=== PATIENT | male | born 1975 | race Caucasian/White ===

== ENCOUNTER 2017-11-18 16:20 | Emergency (ER) | payer MEDICARE | END 2017-11-18 17:40 | disposition home or self-care (01) | LOC: ER 16:20 | DX: S49.92XA Unspecified injury of left shoulder and upper arm, initial encounter (principal); G89.29 Other chronic pain; Z88.8 Allergy status to other drugs, medicaments and biological substances; X50.9XXA Other and unspecified overexertion or strenuous movements or postures, initial encounter; Y93.89 Activity, other specified; Y99.8 Other external cause status; Y92.89 Other specified places as the place of occurrence of the external cause | CPT/HCPCS: 73030; 99284 ==

== ENCOUNTER 2020-09-28 11:12 | Emergency (ER) | payer MEDICARE ==
[~2020-09-28] VITALS: Ht 190.5 cm; Wt 129.4 kg
[2020-09-28] MEDS ORDERED: LIDOCAINE (700MG/PATCH) PATCH. ONE (11:43)
[2020-09-28] MEDS ORDERED: LIDOCAINE (700MG/PATCH) PATCH. TD ONE (12:00)
--- NOTE | 2020-09-28 12:00 | RAD ---
Study: XR SHOULDER_LEFT 2+ VIEWS Indication: Left shoulder pain. History of dislocations. Comparison: 11/18/2017 Findings: Glenohumeral and acromioclavicular joint alignment is within normal limits. No acute fracture is iden tified. Maintained acromiohumeral interval. There may be a small chronic Hill-Sachs impaction deformi ty. No advanced arthrosis. Partially imaged median sternotomy wires. Incomplete assessment of the cardiomediastinal silhouette w hich is only partially imaged. There may be some ectasia of the descending aorta. Impression: 1. No acute fracture or malalignment at the left shoulder girdle. 2. The descending aorta appears to be somewhat ectatic but characterization is limited due to partial imaging of this region and patient obliquity. Status post median sternotomy. Electronically signed by: KARLENE JAMES MD (09/28/2020 11:58 AM) [id number]
--- NOTE | 2020-09-28 12:22 | PHYS DOC ---
Past Medical History Past Medical History: Other Additional Past Medical Histor: MARFAN'S,CHRONIC PAIN,HEART,AORTIC TEAR Past Surgical History: Tonsillectomy, Other Additional Past Surgical Histo: AORTIC VALVE REPLACEMENT,HIP X4 Smoking Status: Never Smoker Alcohol Use: None Drug Use: None General Adult EDM: Chief Complaint: SHOULDER INJURY HPI: HPI: 44-year-old male past medical history of ruptured AAA (reports no repair), Marfan's and recurrent left shoulder dislocations, presents to the ED with complaints of left shoulder pain after patient was reaching forward to grab something. States he has been seen by orthopedic surgery and they refused to perform surgery until patient's known "ruptured abdominal aortic aneurysm is surgically repaired." Pt states he normally follows at [facility]. Denies any blunt injury to the shoulder. Denies any associated chest, abdominal, back pain. Reports left shoulder pain radiates from his shoulder down to his hand and is requesting pain medication stating "I'm getting sweaty cause I'm in pain." I formed patient he would receive a lidocaine patch and he stated "That won't work, I need something stronger." Review of Systems: Review of Systems: Constitutional: Denies fever or chills. [] Eyes: Denies change in visual acuity. [] HENT: Denies nasal congestion or sore throat. [] Respiratory: Denies cough or shortness of breath. [] Cardiovascular: Denies chest pain or edema or syncope GI: Denies abdominal pain, nausea, vomiting, bloody stools or diarrhea. [] : Denies dysuria or hematuria Musculoskeletal: Denies back pain or CVA tenderness Integument: Denies rash or blistering lesions Neurologic: Denies headache, midline neck pain, focal weakness or sensory changes. [] Endocrine: Denies polyuria or polydipsia. [] Lymphatic: Denies swollen glands. [] Psychiatric: Denies depression or anxiety. [] Heart Score: C/O Chest Pain: No Risk Factors: Risk Factors: DM, Current or recent (<one month) smoker, HTN, HLP, family history of CAD, obesity. Risk Scores: Score 0 - 3: 2.5% MACE over next 6 weeks - Discharge Home Score 4 - 6: 20.3% MACE over next 6 weeks - Admit for Clinical Observation Score 7 - 10: 72.7% MACE over next 6 weeks - Early Invasive Strategies Current Medications: Current Medications Medications (Trade) Dose Ordered Sig/Zena Start Time Stop Time Status Last Admin Dose Admin Lidocaine (Lidoderm) 1 patch STK-MED ONCE 09/28/20 11:43 09/28/20 11:43 DC Allergies: Allergies: Allergies Uncoded Allergies Type Severity Reaction Last Updated Verified FLU/PNEUMONIA SHOT Allergy Unknown "WEIRD REACTION" 11/18/17 Physical Exam: PE: Constitutional: Well developed, well nourished, no acute distress, non-toxic appearance. HENT: Normocephalic, atraumatic, Eyes: EOMI, conjunctiva normal, no discharge. Neck: Normal range of motion, supple, no midline pain Cardiovascular: S1/2 present, regular rhythm, no murmur Lungs & Thorax: Speaking in full sentences, bilateral equal chest rise, no tachypnea or increased work of breathing Abdomen: soft, no tenderness, Skin: Warm, dry, no erythema, no rash, no diaphoresis, skin does not feel clammy or overly warm to the touch Back: No tenderness, no CVA tenderness. [] Extremities: no cyanosis, no lower extremity edema, normal appearing shoulder joints, no effusion, normal left shoulder/elbow/wrist rom Neurologic: Alert and oriented X 3, normal motor function, normal sensory function, no focal deficits noted. [] Psychologic: Affect normal, judgement normal, mood normal. [] Current Patient Data: Vital Signs: Vital Signs Date Time Temp Pulse Resp B/P (MAP) Pulse Ox O2 Delivery O2 Flow Rate FiO2 09/28/20 11:18 97.8 60 26 139/60 (86) 100 97.8 EKG: EKG: Sinus rhythm at 55 bpm, no axis deviation, QTC 458, questionable T wave inversion in aVL and V2, no accelerations or ST depressions, no active chest pain Radiology/Procedures: Radiology/Procedures: []IMAGING REPORT Signed PATIENT: YENNIFER MARTE ACCOUNT: [id number] : 1975 LOCATION: ER AGE: 44 SEX: M EXAM STATUS: PRE ER ORD. PHYSICIAN: MARIA D AMES DO REASON: left shoulder pain, h/o dislocations PROCEDURE: SHOULDER 2+V LEFT Study: XR SHOULDER_LEFT 2+ VIEWS Indication: Left shoulder pain. History of dislocations. Comparison: 11/18/2017 Findings: Glenohumeral and acromioclavicular joint alignment is within normal limits. No acute fracture is identified. Maintained acromiohumeral interval. There may be a small chronic Hill-Sachs impaction deformity. No advanced arthrosis. Partially imaged median sternotomy wires. Incomplete assessment of the cardiomediastinal silhouette which is only partially imaged. There may be some ectasia of the descending aorta. Impression: 1. No acute fracture or malalignment at the left shoulder girdle. 2. The descending aorta appears to be somewhat ectatic but characterization is limited due to partial imaging of this region and patient obliquity. Status post median sternotomy. Electronically signed by: KARLENE JAMES MD (09/28/2020 11:58 AM) [id number] DICTATED and SIGNED BY: KARLENE JAMES MD DATE: 09/28/20 [id number] 0 Course & Med Decision Making: Course & Med Decision Making Pertinent Labs and Imaging studies reviewed. (See chart for details) Concern for atraumatic left shoulder pain in the setting of radiculopathy and subjective fever/chills (no active diaphoresis) in a male who appears in no distress, calm with equal radial and brachial pulses, no heart murmur. Given pts' risk factors, symptoms and left shoulder x-rays reviewed myself, plan is to rule out worsening erythema dissection, troponin or electrolyte abnormalities, treat pain and reevaluate patient. Patient continues to ask about analgesia in ED-I informed him I wanted to start an IV and draw labs and do a CT to look at pts' aorta, that further analgesia would be ordered. I was informed by RN and charge that pt decided to leave our facility against medical advice. I have assessed patient's ability to make informed decision and feel the patient has the capacity to comprehend information regarding the current medical condition and appreciates the impact of the disease or condition and the consequences of various options for treatment, including foregoing treatment. The patient possesses the ability to evaluate all treatment options, comparing the risks and benefits of each option, communicate his or her choice in a consistent manner over time, and is able to make rational choices. I explained to the patient further testing, treatment, and evaluation I would like to perform in the emergency department visit as well as any possible alternatives that can be accomplished in a timely manner. I have outlined the possible risks of foregoing any or all of these interventions and the patient understands and acknowledges that the decision to leave may result in undesirable consequences such as , permanent disability, and/or loss of current lifestyle. Patient refused to wait for any discharge information and follow-up instructions. Patient would not stay in ED to wait to speak to me. RN had pt sign AMA form and informed patient he is welcome to return anytime to continue care at our facility. Dragon Disclaimer: Dragon Disclaimer: This electronic medical record was generated, in whole or in part, using a voice recognition dictation system. Departure Departure Impression: Primary Impression: Left anterior shoulder pain Additional Impressions: Left against medical advice Radiculopathy affecting upper extremity Disposition: LEFT AGAINST MEDICAL ADVICE Condition: STABLE Referrals: RICKY REAGAN MD (PCP) in 24 hours for reevaluation Patient Instructions: Discharge Against Medical Advice, Shoulder Pain Additional Instructions: EMERGENCY DEPARTMENT GENERAL DISCHARGE INSTRUCTIONS Thank you for coming to [facility] Emergency Department (ED) today and trusting us with you care. We trust that you had a positive experience in our Emergency Department. If you wish to speak to the department management, you may call the Director at [phone]. YOUR FOLLOW UP INSTRUCTIONS ARE FOLLOWS: 1. Do you have a private Doctor? If you do not have a private doctor, please ask for a resource list of physicians or clinics that may be able to assist you with follow up care. 2. The Emergency Physicain has interpreted your x-rays. The X-Ray specialist will also review them. If there is a change in the findings, you will be notified in 48 hours when at all possible. 3. A lab test or culture has been done, your results will be reviewed and you will be notified if you need a change in treatment. ADDITIONAL INSTRUCTIONS AND INFORMATION: 1. Your care today has been supervised by a physician who is specially trained in emergency care. Many problems require more than one evaluation for a complete diagnosis and treatment. We recommend that you schedule your follow up appointment as recommended to ensure complete treatment of you illness or injury. If you are unable to obtain follow up care and continue to have a problem, or if your condition worsens, we recommend that you return to the ED. 2. We are not able to safely determine your condition over the phone nor are we able to give sound medical advice over the phone. For these safety reasons, if you call for medical advice we will ask you to come to the ED for further evaluation. 3. If you have any questions regarding these discharge instructions please call the ED at [phone]. SAFETY INFORMATION: In the interest of safety, wellness, and injury prevention; we encourage you to wear your sealbelt, if you smoke; quite smoking, and we encourage family to use a protective helmet for bicycling and other sporting events that present an increased risk for head injury. IF YOUR SYMPTOMS WORSEN OR NEW SYMPTOMS DEVELOP, OR YOU HAVE CONCERNS ABOUT YOUR CONDITION; OR IF YOUR CONDITION WORSENS WHILE YOU ARE WAITING FOR YOUR FOLLOW UP APPOINTMENT; EITHER CONTACT YOUR PRIMARY CARE DOCTOR, THE PHYSICIAN WHOSE NAME AND NUMBER YOU WERE GIVEN, OR RETURN TO THE ED IMMEDIATELY. MARIA D AMES DO September 28, 2020 12:22
[2020-09-28 12:54] LABS: BASO # 0.1 x10^3/uL (0.0-0.2); BASO % 1 % (0-3); EOS # 0.2 x10^3/uL (0.0-0.7); EOS % 3 % (0-3); HEMOGLOBIN 12.3 g/dL (13.0-17.5); LYMPH # 1.1 x10^3/uL (1.0-4.8); LYMPH % 14 % (24-48); MEAN CORPUSCULAR HEMOGLOBIN 30 pg (25-35); MEAN CORPUSCULAR HGB CONC 34 g/dL (31-37); MEAN CORPUSCULAR VOLUME 87 fL (79-100); MONO # 0.4 x10^3/uL (0.0-1.1); MONO % 5 % (0-9); NEUT % 77 % (31-73); PLATELET COUNT 428 x10^3/uL (140-400); RED BLOOD COUNT 4.11 x10^6/uL (4.30-5.70); RED CELL DISTRIBUTION WIDTH 14.7 % (11.5-14.5); WHITE BLOOD COUNT 7.8 x10^3/uL (4.0-11.0)
[2020-09-28 12:56] VITALS: BP 138/74
[2020-09-28 13:04] LABS: CALCIUM 9.1 mg/dL (8.5-10.1); GFR 80.8; POTASSIUM 4.1 mmol/L (3.5-5.1)
[2020-09-28] MEDS ORDERED: IOHEXOL 350 MG/ML 100 ML VIAL. IV ONE (13:15)
[2020-09-28] MEDS ORDERED: CONTRAST GIVEN. MC PRN (13:30)
--- NOTE | 2020-09-28 19:10 | EKG ---
[facility] [address] [place] [address] Test Date: 2020-09-28 Test Time: 12:34:30 Pat Name: YENNIFER MARTE Department: Room: Gender: M [employer]: : 1975 Requested By: MARIA D AMES Order Number: [id number] Reading MD: Measurements Intervals [place] Rate: 55 P: 4 AL: 198 QRS: 39 QRSD: 92 T: 71 QT: 476 QTc: 458 Interpretive Statements SINUS RHYTHM CONSIDER RIGHT VENTRICULAR HYPERTROPHY POSSIBLY ABNORMAL ECG RI6.02 No previous ECG available for comparison
== END 2020-09-28 13:09 | disposition left against medical advice (07) ==
LOC: ER 11:12
DX: M25.512 Pain in left shoulder (principal); M54.10 Radiculopathy, site unspecified; G89.29 Other chronic pain; Z88.7 Allergy status to serum and vaccine
CPT/HCPCS: 36415; 73030; 80048; 84484; 85025; 93005; 99285; A4565